=== PATIENT | male | born 1950 | race Caucasian/White ===

== ENCOUNTER 2019-03-24 21:39 | Observation (INO) | payer MEDICARE, OTHER, SELFPAY ==
[2019-03-24] VITALS (13 sets, daily range): BP systolic 107–192; BP diastolic 71–108; PULSE 78–224; RESP 12–34; TEMP 36.6; O2SAT 86–99
--- NOTE | ~2019-03-24 | XR_ITS ---
EXAMINATION: XR chest 1V portable INDICATION: Chest and abdominal pain TECHNIQUE: Portable AP chest at 2227 hours COMPARISON: None available FINDINGS: Cardiomegaly is noted. A mild diffuse interstitial pattern is present. There is no pleural effusion or pneumothorax. Changes of cardiac valve surgery are noted. IMPRESSION: 1. Mild diffuse interstitial pattern, likely mild pulmonary edema. 2. Cardiomegaly. Reviewed, dictated and finalized at location A. NKLER FITTER HELPER
--- NOTE | 2019-03-24 21:45 | ED.GENADULT ---
HPI - General Adult General Chief complaint: Chest Pain <Roslyn Willson MD - Last Filed: 03/25/19 17:48> Stated complaint: CP DIFFICULTY BREATHING <Roslyn Willson MD - Last Filed: 03/25/19 17:48> Time Seen by Provider: 03/24/19 21:45 <Roslyn Willson MD - Last Filed: 03/25/19 17:48> Source: patient and RN notes reviewed <Roslyn Willson MD - Last Filed: 03/25/19 17:48> Mode of arrival: ambulatory <Roslyn Willson MD - Last Filed: 03/25/19 17:48> Limitations: no limitations <Roslyn Willson MD - Last Filed: 03/25/19 17:48> History of Present Illness HPI narrative: Pt is a 68 y/o male who presents to the ED with c/o midsternal chest pain which began at 1700 this evening. He denies any radiation of the pain. He reports he has been unable to lay down on his back without aggravating the pain, but denies any alleviating factors. He states he took his medication, Coumadin, at 1830 without any alleviation of the pain. Pt also reports chest tightness, severe SOB, heart palpitations, upper back pain, a headache, and ABD distension, but denies a fever, a cough, N/V/D, or numbness/tingling anywhere in his extremities. He reports it feels like his heart is racing. Pt reports he has had a similar episode in 2002 where he underwent a triple bypass surgery where he got a mechanical valve replacement at [facility]. Pt reports his kitchen and counter worker is Dr. Crockett. <Roslyn Willson MD - Last Filed: 03/25/19 17:48> MD complaint: Chest pain <Roslyn Willson MD - Last Filed: 03/25/19 17:48> Onset (ago): hour(s) (1700 this evening) <Roslyn Willson MD - Last Filed: 03/25/19 17:48> Location: chest (midsternal) <Roslyn Willson MD - Last Filed: 03/25/19 17:48> Radiation: non-radiation <Roslyn Willson MD - Last Filed: 03/25/19 17:48> Severity: moderate <Roslyn Willson MD - Last Filed: 03/25/19 17:48> Pain Consistency: constant <Roslyn Willson MD - Last Filed: 03/25/19 17:48> Relieving factors: none <Roslyn Willson MD - Last Filed: 03/25/19 17:48> Exacerbating factors: other (laying on his back) <Roslyn Willson MD - Last Filed: 03/25/19 17:48> Associated symptoms: headaches, shortness of breath and other (back pain; chest tightness; heart palpitations; ABD distension) <Roslyn Willson MD - Last Filed: 03/25/19 17:48> Related Data Home medications: Home Medications Medication Instructions Recorded Confirmed atorvastatin [Lipitor] 40 mg PO HS 03/24/19 03/24/19 carvedilol [Coreg] 3.125 mg PO DAILY 03/24/19 03/25/19 fosinopril 10 mg PO DAILY 03/24/19 03/24/19 warfarin 6 mg PO DAILY 03/24/19 03/24/19 <Roslyn Willson MD - Last Filed: 03/25/19 17:48> Allergies/adverse reactions: Allergies Allergy/AdvReac Type Severity Reaction Status Date / Time No Known Allergies Allergy Verified 03/24/19 23:51 <Roslyn Willson MD - Last Filed: 03/25/19 17:48> Review of Systems Review of Systems: All systems reviewed & are unremarkable except as noted in HPI and below <Roslyn Willson MD - Last Filed: 03/25/19 17:48> Constitutional: Constitutional: Denies fever(s) <Roslyn Willson MD - Last Filed: 03/25/19 17:48> Cardiovascular: Cardiovascular: Reports chest pain (midsternal), Reports rapid heart rate (heart palpitations) and Reports other (chest tightness) <Roslyn Willson MD - Last Filed: 03/25/19 17:48> Respiratory: Respiratory: Denies cough and Reports dyspnea <Roslyn Willson MD - Last Filed: 03/25/19 17:48> Gastrointestinal: Gastrointestinal: Denies diarrhea, Denies nausea, Denies vomiting and Reports other (ABD distension) <Roslyn Willson MD - Last Filed: 03/25/19 17:48> Musculoskeletal: Musculoskeletal: Reports back pain (upper) <Roslyn Willson MD - Last Filed: 03/25/19 17:48> Neurologic: Reports headache(s) and Denies numbness (anywhere in his extremities) <Roslyn Willson MD - Last Filed: 03/25/19 17:48> PMFSH Past Medical History Medical
[2019-03-24] MEDS: SODIUM CHLORIDE 0.9% IV 1,000 ML 999 ML (21:50)
[2019-03-24] MEDS: ADENOSINE IV SOLN 6 MG/2 ML VIAL 18 MG (21:50)
[2019-03-24] MEDS: AMIODARONE 150 MG/D5W 100 ML 150 MG/100 ML BAG 600 MG (22:04)
--- NOTE | 2019-03-24 22:10 | PC.NURSE ---
12 MG ADENOSINE GIVEN RAPID IVP AT 2154 FOR HEART RATE OF 222 BY PAULINE Valentine RN.
[2019-03-24 22:15] LABS: Basophils Absolute Auto 0.1 K/mm3 (0.0-0.1); Basophils Percent Auto 0.5 % (0.2-1.2); Eosinophils Absolute Auto 0.3 K/mm3 (0-0.3); Eosinophils Percent Auto 1.6 % (0-4.4); Hematocrit 53.7 % (42.0-52.0); Immature Granulocyte Absolute 0.08 K/mm3 (0.00-0.031); Immature Granulocyte Percent A 0.5 % (0-0.5); Lymphocytes Percent Auto 18.7 % (18.3-44.2); Mean Corpuscular HGB Conc 33.5 g/dl (32-36); Mean Corpuscular Hemoglobin 29.4 pg (26-34); Mean Corpuscular Volume 87.7 fl (80-100); Mean Platelet Volume 10.6 fl (7.4-10.4); Monocytes Absolute Auto 1.1 K/mm3 (0.1-0.6); Monocytes Percent Auto 6.1 % (2.6-8.5); Neutrophils Absolute Auto 12.8 K/mm3 (1.3-6.7); Neutrophils Percent Auto 72.6 % (45.5-73.1); Platelet Count Result 289 k/mm3 (150-375); Red Blood Count 6.12 M/mm3 (4.6-6.20); Red Cell Distribution Width 13.6 % (11.5-14.5); White Blood Count 17.6 K/mm3 (4.5-10.0)
[2019-03-24] MEDS: AMIODARONE 360 MG/D5W 200 ML 360 MG/200 ML BAG 33.3 MG (22:26)
--- NOTE | 2019-03-24 22:31 | ECG_ITS ---
Measurements Intervals [place] Rate: 223 P: NE: 0 QRS: 112 QRSD: 240 T: -48 QT: 298 QTc: 575 Interpretive Statements WIDE COMPLEX TACHYCARDIA, CONSIDER VENTRICULAR TACHYCARDIA RIGHT BUNDLE BRANCH BLOCK LEFT POSTERIOR FASCICULAR BLOCK ST DEPRESSION IN ANTEROLAT/INF LEADS- CONSIDER ISCHEMIA OR RATE RELATED ABNORMAL ECG Electronically Signed On 03-25-2019 7:01:01 PAID SEARCH ANALYST by Zuhair Briseno D.O.
[2019-03-24] MEDS: FUROSEMIDE INJ 40 MG/4 ML VIAL IV PUSH (22:33)
[2019-03-24] MEDS: ETOMIDATE 20 MG/10 ML AMPUL (22:44)
[2019-03-24 22:49] LABS: INR 2.6
[2019-03-24 22:50] LABS: Partial Thromboplastin Time 38.1 SECONDS (22.3-36.8)
[2019-03-24 22:50] LABS: Alanine Aminotransferase 39 U/L (4-50); Albumin Level 3.9 g/dL (3.5-5.1); Alkaline Phosphatase 94 U/L (38-126); Aspartate Amino Transferase 36 U/L (17-59); Bilirubin,Total 1.2 mg/dL (0.2-1.3); Blood Urea Nitrogen 20 mg/dL (9-20); Calcium 8.2 mg/dL (8.4-10.2); Carbon Dioxide 19 mmol/L (22-30); Chloride 107 mmol/L (98-107); Estimated CRCL calculation 62 ml/min; Estimated Glomerular Filt Rate > 60; Glucose 185 mg/dL (75-110); Potassium 4.1 mmol/L (3.4-5.0); Sodium 141 mmol/L (137-145)
--- NOTE | 2019-03-24 22:55 | ECG_ITS ---
Measurements Intervals [place] Rate: 88 P: 53 WI: 260 QRS: 31 QRSD: 113 T: 48 QT: 347 QTc: 422 Interpretive Statements SINUS RHYTHM WITH FIRST DEGREE AV BLOCK ATRIAL PREMATURE COMPLEX POSSIBLE LEFT ATRIAL ENLARGEMENT INTRAVENTRICULAR CONDUCTION DELAY NONSPECIFIC T-WAVE ABNORMALITY- INF/LAT LEADS BASELINE ARTIFACT- I, II, III, AVR, AVL, AVF, V3-V6 ABNORMAL ECG Electronically Signed On 03-25-2019 7:07:28 SENIOR CARE MANAGER by Zuhair Briseno D.O.
[2019-03-24 23:09] LABS: NT Pro B Type Natriuretic Pept 455 PG/ML (5-100); Troponin I 0.744 ng/mL (0.000-0.034)
[2019-03-25] VITALS (8 sets, daily range): BP systolic 104–125; BP diastolic 63–77; PULSE 58–75; RESP 18–26; O2SAT 97–100; BMI 25.7
--- NOTE | 2019-03-25 | ECHO_ITS ---
Patient Info Name: Juan M Davies Age: 68 years : 1950 Gender: Male Ht: 68 in Wt: 175 lbs BSA: 1.97 m2 HR: 58 bpm BP: 107 / 63 mmHg Heart Rhythm: Bradycardia Technical Quality: Good Exam Date: 03/25/2019 9:18 AM Exam Location: [facility] Card Pulmonary Patient Status: Inpatient Admit Date: 03/25/2019 Staff Ordering Physician: Neptali Brooke DO Flame Cutting Machine Operator Helper: Fidel Fountain RDCS Attending Provider: Dion Corona MD Referring Physician: Edwardo CARRENO; Exam Type: CA echo doppler color flow Study Info Indications R07.9 - Chest pain, unspecified Complete two-dimensional, color flow and Doppler transthoracic echocardiogram is performed. Strain analysis performed. History/Risk Factors Chest pain and severe SOB; elevated trops, CHF, CAD s/p CABG and MVR. Summary 1. Left ventricular systolic function is normal, estimated at 60-65%. 2. Left ventricular septal wall motion is abnormal with septal motion related to a post-operative state. 3. There is mildly increased left ventricular wall thickness. 4. Mechanical mitral valve noted with normal motion, no regurgitation. Left Ventricle Left ventricular chamber dimension is normal. Left ventricular systolic function is normal, estimated at 60-65%. There is mildly increased left ventricular wall thickness. Left ventricular septal wall motion is abnormal with septal motion related to a post-operative state. The left ventricular diastolic function is normal. Right Ventricle Right ventricular chamber dimension is normal. Right ventricular systolic function is normal. Left Atria Left atrial chamber dimension is normal. Right Atria Right atrial chamber dimension is normal. Aortic Valve The aortic valve is trileaflet. There is no aortic valve sclerosis. There is no aortic valve stenosis. There is no aortic valve regurgitation. Pulmonic Valve The pulmonic valve is normal. There is no pulmonic valve stenosis. There is no pulmonic regurgitation. Mitral Valve There is no mitral valve stenosis. There is no mitral valve regurgitation. Mechanical mitral valve noted with normal motion, no regurgitation. Tricuspid Valve The tricuspid valve leaflets are normal. There is no significant tricuspid valve stenosis. There is no tricuspid valve regurgitation. Pericardium/Pleural The pericardium appears normal. There is no pericardial effusion. Aorta The aortic root size at the sinus of Valsalva is normal. The prox ascending aorta size is normal. Left Ventricular Outflow Tract Name Value Normal LVOT 2D LVOT Diameter 2.1 cm LVOT Doppler LVOT Peak Gradient 4 mmHg LVOT Mean Gradient 2 mmHg LVOT VTI 17 cm LVOT VTI/AV VTI Ratio 0.8 LVOT Stroke Volume 58 ml LVOT CO 3.3 l/min LVOT CI 1.7 l/min/m2 Mitral Valve Name
--- NOTE | 2019-03-25 00:36 | PC.NURSE ---
Tiff FROM [facility] BED PLACEMENT CALLED TO INFORM US THAT [facility] IS ON A BED HOLD FOR NOW AND DO NOT HAVE AN OPEN BED FOR THIS PT AT THIS TIME. WILL CALL BACK WITH BED ASSIGNMENT WHEN ONE BECOMES AVAILABLE.
[2019-03-25] MEDS: AMIODARONE 360 MG/D5W 200 ML 360 MG/200 ML BAG 16.7 MG IV CONT (04:23)
--- NOTE | 2019-03-25 05:43 | PC.NURSE ---
spoke with Geraldine from [facility] ([facility]). Geraldine made aware that pt still requests to go to [facility]. Geraldine informs this RN that pt is still waiting on a bed to become available, and they will call when it does.
--- NOTE | 2019-03-25 09:54 | ADMGEN ---
This patient, Juan M Davies, was admitted to Intensive Care Unit-11 at 0945. Patient/family oriented to hospital policies and general routines including ID bracelet, bed and alarms, visiting hours, pain management, procedures, bathroom and other care routines, personal items, smoking policy, room service/diet, and visiting hours. Valuables list has been completed. Information on how to activate the Rapid Response Team has been discussed. Patient/Family are encouraged to report perceived risks to care and to ask questions if they do not understand what they are told or what they should do.
--- NOTE | 2019-03-25 10:18 | PM.CNCAR ---
Assessment and Plan Assessment and plan (1) Arrhythmia: Code(s): I49.9 - Cardiac arrhythmia, unspecified Status: Acute Assessment and Plan: Review of records revealed that patient had he a wide complex tachycardia which resolved after cardioversion remains in normal sinus rhythm since then. No acute EKG changes. Patient with history of valve problems and according to his he had significant mitral regurgitation. Currently on anticoagulation with Coumadin and according to INR is therapeutic. Patient would benefit from further cardiac evaluation including EP evaluation for his arrhythmia. Monitor electrolytes and kidney function. Continue amiodarone drip (2) CAD (coronary artery disease): Code(s): I25.10 - Atherosclerotic heart disease of [place] coronary artery without angina pectoris Status: Acute Assessment and Plan: Patient with history of coronary disease status post CABG. according to family he had stress test about 6 months ago whch was negative. No acute EKG changes. Presence of troponin elevation probably secondary to his arrhythmia and cardioversion. Continue anticoagulation of Coumadin. Continue beta-blockers and statins (3) Hyperlipidemia: Code(s): E78.5 - Hyperlipidemia, unspecified Status: Acute Assessment and Plan: Continue statins. Thank you for your consult. Patient is going to be transferred to [facility] for further evaluation management Till transfer will follow him at [facility] History of Present Illness History of Present Illness Consult date/time: 03/25/19 10:18 Mr. Davies is a pleasant 68-year-old white male with past medical history of MR status post MVR on Coumadin, CAD s/p CABG hyperlipidemia who presented to [facility] last night because of ?heart racing?. According to patient and his yesterday 5:30 p.m. he experienced episodes of heart racing associated with shortness of breath and chest discomfort. He could not lay down because of shortness of breath. Subsequently he was was brought to the ER of [facility] when patient was found to have arrhythmia with fast heart rate (207 beats per minute). he had cardioversion ([address] Willson) which converted him back to normal sinus rhythm. afterwards his symptoms resolved. Patient was started on amiodarone drip According to patient and his he had similar episode in 2001 and with rapid heart rate. In 2002 patient had cardiac evaluation ([facility], Dr. Crockett, Dr. Preciado) and patient was found to have significant valvar disease. Heunderwent mitral valve replacement with mechanical valve as well as CABG at that time. Since then he is being follow by zipper ironer at [facility]. He patient claims that about half a year ago he had a stress test which was normal. Patient is not aware about any other cardiac problems denies diabetes either. Review of records revealed that the patient was supposed to be transferred last night to [facility] for further evaluation and management however since bed was unavailable patient is still in the ER at this point Patient was seen and examined while in the ER, Chart was reviewed, Case was discussed with warehouse assembly worker as well as patient's nurse Reason For Visit: Ventricular tachycardia/Elevated troponin Review of Systems Review of Systems: All systems reviewed & are unremarkable except as noted in HPI and below Constitutional: Constitutional: Reports as per HPI Eyes: Eyes: Reports as per HPI ENT: Reports system reviewed and no additional complaints, except as documented and Reports as per HPI Cardiovascular: Cardiovascular: Reports as per HPI and Reports palpitations Respiratory: Respiratory: Reports as per HPI Gastrointestinal: Gastrointestinal: Reports as per HPI Genitourinary: Genitourinary: Reports as per HPI Musculoskeletal: Musculoskeletal: Reports as per HPI [facility]
[2019-03-25 10:21] LABS: Magnesium 1.7 mg/dL (1.6-2.3)
--- NOTE | 2019-03-25 11:48 | WPDCNINT ---
Assessment and Plan Assessment and plan (1) Ventricular tachycardia: Code(s): I47.2 - Ventricular tachycardia Status: Acute Assessment and Plan: S/p cardioversion in ED On Amio drip Resume beta rebecca Pt is being transferred to [facility] once they have a bed for further evaluation ICU monitoring (2) NSTEMI (non-ST elevated myocardial infarction): Code(s): I21.4 - Non-ST elevation (NSTEMI) myocardial infarction Status: Acute Assessment and Plan: Likley from VT. Pt seen by cardiology. Pt now CP free since cardioversion Already anticoagulated with warfarin I will resume ASA, BB and Statin Will need cath once gets to [facility] (3) CAD (coronary artery disease): Code(s): I25.10 - Atherosclerotic heart disease of [place] coronary artery without angina pectoris Status: Acute Assessment and Plan: Will need cath. Management per Cardiology Resume ASA, Warfarin, BB and statin (4) Hyperlipidemia: Code(s): E78.5 - Hyperlipidemia, unspecified Status: Acute Assessment and Plan: Resume statin (5) Leukocytosis: Code(s): D72.829 - Elevated white blood cell count, unspecified Status: Acute Assessment and Plan: Could be stress response. Will repeat CBC (6) H/O mitral valve replacement: Code(s): Z95.2 - Presence of prosthetic heart valve Status: Acute Assessment and Plan: Coumadin Professor Of Psychiatry Consult Note Consult date: 03/25/19 Time Seen: 11:30 HPI: Juan M Davies is a 68 year old male with PMH of CAD s/p CABG and MVR 17 years ago presented with CC of palpitations that started 530 pm yesterday. Pt was asymtomatic prior to that and has no exertion CP or PND. Palpitations were associated with CP and SOB. No Cough, fever, N/V or syncope. In ED he was found to be in VT and was DC cardioverted and placed on amio drip. Seen by cardiology and plan to transfer to [facility] as pt's wall man is there. pt has been accepted but they dont have a bed hence admitted to ICU. pt at this time is asymptomatic He had a stress test 1 yr ago which was negative Review of Systems Constitutional: Constitutional: Reports no additional constitutional complaints Eyes: Eyes: Reports no additional eye complaints ENT: Reports system reviewed and no additional complaints, except as documented Cardiovascular: Cardiovascular: Reports no additional cardiovascular complaints Respiratory: Respiratory: Reports no additional respiratory complaints Gastrointestinal: Gastrointestinal: Reports no additional gastrointestinal complaints Genitourinary: Genitourinary: Reports no additional male genitourinary complaints Musculoskeletal: Musculoskeletal: Reports no additional musculoskeletal complaints Integumentary/Breasts: Skin/Breast: Reports system reviewed and no additional complaints, except as docu Neurologic: Reports system reviewed and no additional complaints, except as documented Psychiatric: Psychiatric: Reports no additional psychiatric complaints Endocrine: Endocrine: Reports no additional endocrine complaints Hematologic/Lymphatic: Hematologic/Lymphatic: Reports no additional hematologic/lymphatic complaints Allergic/Immunologic: Allergic/Immunologic: Reports no additional allergic/immunologic complaints PMFSH Past Medical History Medical History CHF (congestive heart failure) Hypercholesterolemia Surgical History Surgical History H/O angioplasty H/O cardiac catheterization H/O vascular surgery History of coronary artery stent placement Hx of CABG Family History Family History Sibling Hypertension Family history of coronary artery disease Mother Family history of coronary artery disease Social History Social History (Reviewed 03/25/19 @ 11:5
[2019-03-25 12:02] LABS: Hematocrit 47.3 % (42.0-52.0); Mean Corpuscular HGB Conc 33.8 g/dl (32-36); Mean Corpuscular Hemoglobin 29.9 pg (26-34); Mean Corpuscular Volume 88.2 fl (80-100); Mean Platelet Volume 10.7 fl (7.4-10.4); Platelet Count Result 226 k/mm3 (150-375); Red Blood Count 5.36 M/mm3 (4.6-6.20); Red Cell Distribution Width 13.6 % (11.5-14.5); White Blood Count 16.5 K/mm3 (4.5-10.0)
[2019-03-25 12:03] LABS: Alanine Aminotransferase 39 U/L (4-50); Albumin Level 3.9 g/dL (3.5-5.1); Alkaline Phosphatase 88 U/L (38-126); Aspartate Amino Transferase 61 U/L (17-59); Bilirubin,Total 1.6 mg/dL (0.2-1.3); Blood Urea Nitrogen 19 mg/dL (9-20); Calcium 8.4 mg/dL (8.4-10.2); Carbon Dioxide 19 mmol/L (22-30); Chloride 106 mmol/L (98-107); Estimated CRCL calculation 57 ml/min; Estimated Glomerular Filt Rate > 60; Glucose 163 mg/dL (75-110); Sodium 138 mmol/L (137-145)
[2019-03-25] MEDS: ACETAMINOPHEN 325 MG TABLET 650 MG PO (12:19)
--- NOTE | 2019-04-20 16:22 | PM.DS ---
DS: Diagnosis Admitting Diagnosis Admitting Diagnosis: Chest pain, unspecified Principal diagnosis: Ventricular tachycardia, congestive heart failure, non ST elevation myocardial infarction Discharge Diagnosis (1) Arrhythmia: Code(s): I49.9 - Cardiac arrhythmia, unspecified Status: Acute Assessment and Plan: Review of records revealed that patient had he a wide complex tachycardia which resolved after cardioversion remains in normal sinus rhythm since then. No acute EKG changes. Patient with history of valve problems and according to his he had significant mitral regurgitation. Currently on anticoagulation with Coumadin and according to INR is therapeutic. Patient would benefit from further cardiac evaluation including EP evaluation for his arrhythmia. Monitor electrolytes and kidney function. Continue amiodarone drip (2) CAD (coronary artery disease): Code(s): I25.10 - Atherosclerotic heart disease of [place] coronary artery without angina pectoris Status: Acute Assessment and Plan: Patient with history of coronary disease status post CABG. according to family he had stress test about 6 months ago whch was negative. No acute EKG changes. Presence of troponin elevation probably secondary to his arrhythmia and cardioversion. Continue anticoagulation of Coumadin. Continue beta-blockers and statins (3) Hyperlipidemia: Code(s): E78.5 - Hyperlipidemia, unspecified Status: Acute Assessment and Plan: Continue statins. Thank you for your consult. Patient is going to be transferred to [facility] for further evaluation management Till transfer will follow [facility] DS: Summary Time Spent with Patient Time attestation: Total time spent providing and/or coordinating discharge services: Patient was admitted to the hospital, noted to have ventricular tachycardia and non ST elevation myocardial infarction, patient's primary office assistant at [facility] patient was transferred to [facility] further stabilization Exam Const: General: alert and awake; No acute distress HENMT: Head: normal to inspection and atraumatic Ears: hearing grossly normal bilaterally Face and sinus: normal facial exam Eyes: General: appearance normal, both eyes and all related structures Pupils: Equal, round and reactive pupils present EOM: EOMs intact bilaterally Neck: Neck: normal visual inspection and no JVD Chest: Chest palpation & inspection: normal inspection of the chest Resp: Effort & Inspection: normal respiratory effort and no respiratory distress Auscultation: clear to auscultation bilaterally Cardio: Jugular venous distension: no JVD Rate: regular rate Heart sounds: S1 normal heart sound present, S2 normal heart sound present and Other heart sounds present (mechanical click) GI: Inspection: normal to inspection Auscultation: normal bowel sounds Skin: General skin exam: normal color Neuro: Cranial nerves: Yes Equal, round and reactive pupils present Extrem: General: normal to inspection and no clubbing, cyanosis or edema Discharge Plan Discharge Consulting providers: Rickey Narvaez ; Wolf Sandhu ; Zuhair Briseno ; Cosmo Roberts Discharging Clinician: Dion Corona Anticipated Discharge Date/Time: 03/27/19 16:23 Patient Disposition: Acute Care Hospital Activity: no preference Diet: heart healthy Discharge Medications: Continued fosinopril 10 mg tablet 10 mg PO DAILY RF: 0 atorvastatin [Lipitor] 40 mg tablet 40 mg PO HS RF: 0 carvedilol [Coreg] 3.125 mg tablet 3.125 mg PO DAILY RF: 0 warfarin 3 mg tablet 6 mg PO DAILY RF: 0 Date of admission: 03/25/19 08:15 Primary Care Provider: Crispin Hilario Admitting Provider: Dion Corona Interventions: Discharge Disposition Last Done: 03/25/19 15:38 Discharge Date/Time: 03/25/19 15:15 Attending physician on admission: Barbara
== END 2019-03-25 15:15 | disposition short-term general hospital (02) ==
LOC: ANHED 03-25 08:26 → ANHICU 03-25 08:38
PROVIDERS: Emergency Medicine; Internal Medicine; Admitting Provider Specialist; Emergency Provider Emergency Medicine; PCP Family Medicine Adolescent Medicine; Visit Provider Specialist
DX: I47.2 Ventricular tachycardia (principal); I21.4 Non-ST elevation (NSTEMI) myocardial infarction; I50.23 Acute on chronic systolic (congestive) heart failure; I25.10 Atherosclerotic heart disease of native coronary artery without angina pectoris; E78.5 Hyperlipidemia, unspecified; D72.829 Elevated white blood cell count, unspecified; Z79.01 Long term (current) use of anticoagulants; Z79.899 Other long term (current) drug therapy; Z95.1 Presence of aortocoronary bypass graft; Z95.2 Presence of prosthetic heart valve; Z95.5 Presence of coronary angioplasty implant and graft
CPT/HCPCS: 36415; 71045; 80053; 83735; 83880; 84484; 85025; 85027; 85610; 85730; 92960; 93005; 93306; 96365; 96366; 96375; 99285; 99291; A9270; G0378; J0153; J0282; J1940; J2001; J7030

== ENCOUNTER 2020-07-20 14:00 | Outpatient (CLI) | payer MEDICARE, OTHER, SELFPAY ==
--- NOTE | ~2020-07-20 | CT_ITS ---
EXAMINATION: CT soft tissue neck w con DATE: 07/20/2020 14:57 INDICATION: Lesion of buccal mucosa. TECHNIQUE: Computed tomography (CT) of the neck was performed with 75 mL Omnipaque-350 intravenous co ntrast. Automated exposure control and iterative reconstruction technique were employed. The dose-sammi gth product was 570.31 mGy-cm. COMPARISON: None FINDINGS: There are no pathologically enlarged lymph nodes. There is plaque in the proximal internal carotid arteries with 0% stenosis relative to normal distal artery lumen diameters. There are changes of coronary artery bypass grafting. A left chest pacer is noted. The paranasal sinuses are clear. Th e mastoid air cells are normal. There is moderate cervical spondylosis. IMPRESSION: 1. No lymphadenopathy. Reviewed, dictated and finalized at location A. IMPRESSION: 1. No lymphadenopathy.
[2020-07-20 14:48] LABS: Estimated Glomerular Filt Rate 55
== END 2020-07-20 14:01 | disposition home or self-care (01) ==
PROVIDERS: PCP Family Medicine Adolescent Medicine; Visit Provider Otolaryngology
DX: K13.70 Unspecified lesions of oral mucosa (principal); L98.9 Disorder of the skin and subcutaneous tissue, unspecified
CPT/HCPCS: 70491; Q9967

== ENCOUNTER → 2022-08-27 16:04 | Outpatient (CLI) | payer MEDICARE, OTHER, SELFPAY ==
--- NOTE | ~2022-08-27 | XR_ITS ---
EXAM: XR knee LT 3V DATE: 08/27/2022 16:36 HISTORY: left knee pain . COMPARISON: None available. FINDINGS: Surgical clips project over the medial soft tissues. Normal mineralization. No fracture or dislocation. No lytic or blastic lesion. Mild medial joint space narrowing. Patellar and quadriceps enthesopathy. Mild osteophytosis in the patellofemoral compartment. Small volume joint fluid. No eros ion or periosteal change. Vascular calcifications. IMPRESSION: Mild osteoarthritic changes. Small knee joint effusion. Reviewed, dictated and finalized at location K.
== END ==
PROVIDERS: PCP Family Medicine Adolescent Medicine; Visit Provider Family Medicine Adolescent Medicine
DX: M17.12 Unilateral primary osteoarthritis, left knee (principal); M25.462 Effusion, left knee
CPT/HCPCS: 73562

== ENCOUNTER 2022-09-24 17:35 | Emergency (ER) | payer MEDICARE, OTHER, SELFPAY ==
[2022-09-24 17:53] VITALS: BP 135/110; PULSE 83; RESP 26; TEMP 37.1; O2SAT 99
[2022-09-24] MEDS: ONDANSETRON INJ 4 MG/2 ML VIAL IV PUSH (18:14)
[2022-09-24] MEDS: MORPHINE SULFATE (*CRX) 4 MG/ML INJ IV PUSH (18:14)
--- NOTE | 2022-09-24 18:15 | ED.MALEGU ---
HPI - Male Genitourinary General Chief complaint: Urogenital-Male Stated complaint: urinary retention Time Seen by Provider: 09/24/22 17:59 History of Present Illness HPI Narrative: Patient is a 72-year-old male with history of prostate cancer status post prostatectomy in December 2021 followed by radiation here with acute urinary retention. Patient notes that he last voided this morning and has been unable to void since. he states that he last saw his urologist several months ago postoperatively but is not currently following with them. His urologist was Dr. Carpenter at [facility]. patient did follow-up with his oncology nurse practitioner last week who diagnosed him with a urinary tract infection. He was started on ciprofloxacin and has a couple of days remaining. He denies any fever chills. He does endorse abdominal pain and distention associated with the urinary retention. No trauma. No diarrhea or constipation. Related Data Home Medications Medication Instructions Recorded Confirmed fosinopril 10 mg tablet 10 mg PO DAILY 03/24/19 09/24/22 warfarin 3 mg tablet 6 mg PO DAILY 03/24/19 09/24/22 acetaminophen 325 mg capsule 325 mg PO Q6H PRN Pain (Scale 07/07/20 09/24/22 (Tylenol) Score 1-3) carvedilol 3.125 mg tablet 3.125 mg PO Q12H 11/28/20 09/24/22 rosuvastatin 10 mg tablet 10 mg PO DAILY 08/21/21 09/24/22 Allergies Allergy/AdvReac Type Severity Reaction Status Date / Time No Known Allergies Allergy Verified 09/24/22 18:48 Review of Systems Review of Systems: CONSTITUTIONAL: Denies fever, chills, or sweats. CARDIOVASCULAR: Denies chest pain, palpitations, or edema. RESPIRATORY: Denies cough or dyspnea. GASTROINTESTINAL: Abdominal pain. GENITOURINARY: Unable to urinate MUSCULOSKELETAL: Denies back pain, joint pain, or myalgia. NEUROLOGIC: Denies headache, numbness, or weakness. PSYCHIATRIC: Denies anxiety or depression. [facility] Past Medical History Medical History CHF (congestive heart failure) History of OK (myocardial infarction) 01/2002 Hypercholesterolemia Surgical History Surgical History H/O angioplasty H/O cardiac catheterization H/O mitral valve replacement H/O vascular surgery History of coronary artery stent placement Hx of CABG Family History Family History Sibling Hypertension Family history of coronary artery disease Diabetes mellitus Heart disease Mother Family history of coronary artery disease Diabetes mellitus Heart disease Grandparent Diabetes mellitus Heart disease Social History Social History (Updated 08/21/21 @ 13:01 by Barbara Tipton MA) Smoking status: Never smoker Second hand tobacco smoke exposure: No Smoking end date: 02/11/02 Alcohol intake: former Substance use: never Substance use type: does not use Living arrangements: with family Occupation/Education: retired Gender identity (if verbalized by the patient): Male Sexual Orientation (if Verbalized by the Patient): Straight or Heterosexual Spiritual care concerns: No Agree to blood products: Yes Exam Narrative: GENERAL: Well-appearing, well-nourished, Appears to be in pain. HEAD: Normocephalic, atraumatic. EYES: PERRLA and EOMI. ENT: Nares clear. Mucous membranes moist. NECK: Supple. CHEST: Clear to auscultation. No respiratory distress. HEART: Regular rate and rhythm. Normal peripheral pulses. ABDOMEN: Distended, tender in the suprapubic region EXTREMITIES: Normal range of motion. No edema. SKIN: Warm, dry, no rash. NEURO: No focal deficits. Alert and oriented x3. PSYCH: Normal mood and affect. Course Course Emergency Course: Patient seen and evaluated. Does appear to be in pain. My evaluation nursing has already attempted to place Gupta catheter, unsuccessful attempts x2. Suspect urinary
[2022-09-24 18:17] LABS: Basophils Absolute Auto 0.01 K/mm3 (0.00-0.10); Basophils Percent Auto 0.1 % (0.0-1.0); Eosinophils Absolute Auto 0.03 K/mm3 (0.02-0.50); Eosinophils Percent Auto 0.4 % (1.0-6.0); Hematocrit 39.4 % (37.0-46.0); Hemoglobin 13.5 g/dL (12.4-15.3); Immature Granulocyte Absolute 0.04 K/mm3 (0.00-0.00); Immature Granulocyte Percent A 0.5 % (0.0-0.0); Lymphocytes Absolute Auto 0.68 K/mm3 (1.10-4.50); Lymphocytes Percent Auto 8.3 % (18.0-42.0); Mean Corpuscular HGB Conc 34.3 g/dL (32.0-36.0); Mean Corpuscular Hemoglobin 32.6 pg (27.0-31.0); Mean Corpuscular Volume 95.2 fL (78.0-102.0); Mean Platelet Volume 9.6 fl (8.7-11.0); Monocytes Absolute Auto 0.42 K/mm3 (0.10-0.90); Monocytes Percent Auto 5.2 % (2.0-11.0); Neutrophils Percent Auto 85.5 % (50.0-70.0); Platelet Count Result 171 K/mm3 (150-420); Red Blood Count 4.14 M/mm3 (4.70-6.10); Red Cell Distribution Width 13.7 % (11.6-14.4); White Blood Count 8.2 K/mm3 (4.8-10.8)
[2022-09-24 18:32] LABS: Alanine Aminotransferase 62 U/L (16-63); Alkaline Phosphatase 98 U/L (46-116); Anion Gap 12 mmol/L (8-16); Aspartate Amino Transferase 62 U/L (15-37); Bilirubin,Total 2.3 mg/dL (0.00-1.00); Blood Urea Nitrogen 32 mg/dL (7-18); Carbon Dioxide 24 mmol/L (21-32); Chloride 106 mmol/L (98-108); Estimated CRCL calculation 38 ml/min; Estimated Glomerular Filt Rate 42; Glucose 120 mg/dL (70-99); Osmolality Calculated 301 mOsm/kg (285-295); Potassium 4.4 mmol/L (3.5-5.1); Sodium 142 mmol/L (136-145); Total Protein 7.3 g/dL (6.4-8.2)
--- NOTE | 2022-09-24 18:43 | PC.NURSE ---
1800 ATTEMPTED TO CATH PT UNSUCCESSFUL DR AWARE 1840 2ND RN ATTEMPTED TO CATH PT UNSUCCESSFUL DR DANIEL
[2022-09-24 19:24] VITALS: BP 135/110; PULSE 82; RESP 16; TEMP 36.6; O2SAT 98
== END 2022-09-24 19:27 | disposition left against medical advice (07) ==
PROVIDERS: Emergency Provider Student in an Organized Health Care Education/Training Program; PCP Family Medicine Adolescent Medicine
DX: N17.9 Acute kidney failure, unspecified (principal); R33.9 Retention of urine, unspecified; I50.9 Heart failure, unspecified; I25.2 Old myocardial infarction; Z85.46 Personal history of malignant neoplasm of prostate; Z79.01 Long term (current) use of anticoagulants
CPT/HCPCS: 36415; 80053; 85025; 96374; 96375; 99284; J2270; J2405